=== PATIENT | female | born 1940 | race Caucasian/White ===

== ENCOUNTER 2017-02-02 10:50 | Observation (INO) | payer MEDICARE, MEDICAID ==
[2017-02-02 11:26] LABS: #Basophils 0.1 thou/uL (0.0-0.2); #Eosinphils 0.3 thou/uL (0.0-0.7); #Lymphocytes 3.2 thou/uL (1.20-3.40); #Monocytes 1.4 thou/uL (0.11-0.59); %Basophils 0.7 % (0.0-1.0); %Eosinophils 1.8 % (0.0-10.0); %Lymphocytes 22.8 % (21.0-51.0); %Monocytes 10.2 % (0.0-10.0); Hematocrit 48.5 % (36.0-47.0); Red Blood Cell (RBC) Count 5.35 mill/uL (4.20-5.40); White Blood Cell (WBC) Count 13.9 thou/uL (4.8-10.8)
[2017-02-02 11:37] LABS: PTT 53.2 SEC (22.9-36.1); Prothrombin Time 13.5 SEC (12.0-14.7)
--- NOTE | 2017-02-02 11:43 | RAD ---
SINGLE VIEW CHEST: HISTORY: Left lower rib pain since yesterday that is worse with breathing. COMPARISON: 07/15/2016 FINDINGS: A single view of the chest shows a normal sized cardiomediastinal silhouette with atherosclerotic caesar cifications in the aorta. The patient is status post sternotomy. There is no evidence of consolidat ion, mass, or pleural effusion. IMPRESSION: No evidence of acute cardiopulmonary disease. POS: [facility]
[2017-02-02 11:52] LABS: ALT (SGPT) 9 U/L (8-55); AST (SGOT) 15 U/L (5-34); Alkaline Phosphatase 88 U/L (40-150); Anion Gap 14 mmol/L (10-20); BUN (Urea Nitrogen) 17 mg/dL (9.8-20.1); Bilirubin, Total 0.9 mg/dL (0.2-1.2); CK (CPK) 64 U/L (29-168); Calc. Creatinine Clearance 0 mL/min (70-130); Calcium 9.9 mg/dL (7.8-10.44); Carbon Dioxide 24 mmol/L (23-31); Chloride 103 mmol/L (98-107); Estimated GFR-MDRD 50; Globulin 3.4 g/dL (2.4-3.5); Lipase 8 U/L (8-78); Magnesium 2.6 mg/dL (1.6-2.6); Protein, Total 7.6 g/dL (6.0-8.3)
[2017-02-02 12:01] LABS: Troponin I 0.013 ng/mL (< 0.028)
[2017-02-02 12:04] LABS: Bilirubin Negative (Negative); Blood, Urine Moderate (Negative); Glucose, Urine (Dipstick) Negative (Negative); Ketone, Urine Negative (Negative); Nitrite Negative (Negative); Protein, Urine (Dipstick) 30 mg/dL (Neg-Trace)
[2017-02-02 12:06] LABS: Bacteria/HPF 1+ HPF (None Seen); Hyaline Casts/LPF 0-3 HYALINE CAST LPF (0-3 Hyaline); RBC/HPF 21-50 HPF (0-3)
[2017-02-02] MEDS ORDERED: Ondansetron HCl/PF 4 MG/2 ML Vial ONE ×2 (13:10→16:57)
--- NOTE | 2017-02-02 13:42 | CT ---
CT ANGIOGRAM OF THE CHEST: Date: 02/02/17 HISTORY: Chest pain with deep breathing. TECHNIQUE: Serial axial CT imaging is obtained at 2.5 mm intervals from thoracic inlet through upper abdomen wit h IV contrast using a CT angiogram protocol. Coronal and oblique sagittal 3D reformatted imaging obta ined. FINDINGS: Partial assessment of the upper abdomen demonstrates stable linear calcification within the spleen quintana periorly. There are multiple intrarenal stones again identified within the left kidney, measuring up to 7-8 mm. There is no significant pleural, pericardial, or mediastinal fluid noted. Midline sternotomy wires and mediastinal clips are present. Lymphadenopathy seen within the chest. There is extensive calcified and noncalcified atherosclerotic plaque associated with thoracic aorta, incompletely characterized on this examination, better assessed on CT angiogram of the chest performe d 03/16/16. There is good opacification of the pulmonary arterial vasculature. No filling defect is seen within t he pulmonary arterial trunk or either main pulmonary artery. There is no evidence for pulmonary embolism on either side. There is no pneumothorax seen on either side. There is prominent central lobular emphysematous change with an upper lobe predominance. Osseous structures demonstrate no acute findings. Multilevel spinal degenerative change present. IMPRESSION: No evidence for pulmonary embolism. Numerous chronic findings as described above. POS: [facility]
[2017-02-02 15:55] LABS: Troponin I 0.015 ng/mL (< 0.028)
[2017-02-02] MEDS ORDERED: Acetaminophen 325 MG TAB PO PRN (17:13)
[2017-02-02] MEDS ORDERED: ISOVUE-370 76%-LOCM 1 ML ONE (17:21)
[2017-02-02 19:16] LABS: Troponin I Less than 0.010 ng/mL (< 0.028)
[2017-02-02] MEDS ORDERED: Promethazine HCl 25 MG SUPP PR PRN (20:08)
[2017-02-02] MEDS ORDERED: PROVENTIL INHALER 6.7 G (200 INHALATIONS) INH PRN (20:11)
[2017-02-02] MEDS ORDERED: Sodium Chloride 0.9% 10 ML ONE ×2 (21:13→23:52)
[2017-02-02] MEDS ORDERED: Ondansetron HCl/PF 4 MG/2 ML Vial SLOW IVP PRN (23:44)
[2017-02-02] MEDS ORDERED: Sodium Chloride 0.9% 1,000 ML IV SCH (23:45)
--- NOTE | 2017-02-03 00:04 | HP ---
HISTORY OF PRESENT ILLNESS: Suzette is a pleasant 76-year-old woman treated by Dr. Michael sanchez, who was hospitalized through the emergency room for chest pain. She has a known history of co ronary artery disease and is status post a 4-vessel CABG in the past. Her u.s. revenue officer is Dr. Justin Kelsey. She reports being in her usual health until about one day ago when the morning she noticed some sharp, well localized, left lower chest pain, limited to portion of what look like the costal ma rgin at approximately the left clavicular line. The pain has been there continuously and it seemed t o be worse with inhalation, exhalation and with laughing. She does not report any coughing. At that time, she notes the pain would radiate to the left neck area approximately 3 times total. She indic ates that the pain had radiated to her bilateral back, but cannot say that this was particularly a ra diation or this was just a coincidental low back pain that was present concurrently. She denies any palpitations, shortness of breath, and while she had no nausea or vomiting yesterday, she has had sarah e nausea today. She denies any recent fall or trauma to account for her left-sided chest pain. She notes no ankle edema. She has not had any diarrhea. PAST MEDICAL HISTORY: Includes; 1. Coronary artery disease, status post 4-vessel CABG as above. 2. Hyperlipidemia. 3. Tobacco use/60-year history of tobacco use. 4. History of paroxysmal atrial fibrillation. 5. History of degenerative joint disease, lumbosacral area. The patient indicates problems with her left hip as well as her hands. 6. Peripheral vascular disease is reported. 7. Abdominal aortic aneurysm. PAST SURGICAL HISTORY: 1. Four-vessel CABG. 2. Appendectomy. 3. Bladder surgery. 4. Hysterectomy. 5. Lower lumbar spine surgery/laminectomy. 6. Neurectomy (right occipital area). 7. Tonsillectomy. ALLERGIES: No known drug allergies. CURRENT MEDICATIONS: Taken include lisinopril 2.5 mg daily, rosuvastatin 10 mg twice weekly, 81 mg a spirin daily, metoprolol succinate ER 25 mg daily, Ventolin HFA 2 puffs p.r.n. shortness of breath, S ymbicort 160/4.5 twice daily. SOCIAL HISTORY: The patient lives with her , Ruslan in [place], [place] in a single story mikel e. She has one daughter, whose name is Lilliana. She has 3 step children. Her episcopal preference i s Religious. PHYSICAL EXAMINATION: VITAL SIGNS: Temperature 99.0, blood pressure 122/65, pulse 82, respiratory rate 16, O2 saturation 9 9. GENERAL: Thin female, appearing her reported age. Alert, pleasant, in no acute distress, [place] with the head of the bed raised to at least 45 degrees. Her breathing i s nonlabored. There are no retractions or use of accessory muscles. Her mood is euthymic. Her thou ght processes are coherent, logical, and goal directed without loose association or flight of ideas. Her intelligence and discussion with fund of knowledge and her overall presentation is at least aver age. HEENT: Oral cavity shows dentures material in the upper and lower (lower partial). NECK: Supple without lymphadenopathy or thyromegaly. LUNGS: Clear to auscultation without crackles or wheezes. CARDIAC: Well healed surgical sternotomy. There is a small area about the size of a dime in the rupali roximate area of the left costal margin in the midclavicular line, there is moderately tender to palp ation with voluntary guarding when she is examined. ABDOMEN: Soft, nontender. No lower extremity edema. SKIN: With normal texture and appearance. EXTREMITIES: Without clubbing, cyanosis, or edema. LABORATORY AND X-RAY FINDINGS: White blood cell count 13.9, hemoglobin 16. D-dimer is 1.17, GFR is 20. Liver enzymes normal. BUN 17, creatinine 1.08, potassium is 4.3. BNP is 214. Negative troponi n I x2. CT angiography of chest shows no pulmonary embolus. Electrocardiogram not seen in the [facility] nt chart in the emergency room (but is reported not to have any acute ST-T changes in it). ASSESSMENT: 1. Atypical chest pain suggestive of musculoskeletal pain. Her multiple risk factors now was standi ng could indicate that while less likely, she could still be having some cardiac ischemia. 2. Known coronary artery disease as per above. 3. Tobacco use with chronic obstructive pulmonary disease. 4. History of paroxysmal atrial fibrillation. PLAN: 1. Hospitalization. 2. Serial cardiac enzymes. 3. Cardiology consultation.
[2017-02-03] MEDS ORDERED: Mometasone/Formoterol 120 PUFF INHALER INH SCH (06:30)
[2017-02-03] MEDS ORDERED: Lisinopril 2.5 MG TAB PO SCH (09:00)
[2017-02-03] MEDS ORDERED: Aspirin 81 mg Enteric Coated Tablet PO SCH (09:00)
[2017-02-03] MEDS ORDERED: cefTRIAXone\\ROCEPHIN 2 GM in Sodium Chloride 0.9% 100 ML IVPB ONE (09:00)
--- NOTE | 2017-02-03 09:14 | DIS ---
DATE OF ADMISSION: 02/02/2017 DATE OF DISCHARGE: 02/03/2017 PRIMARY CARE PHYSICIAN: Michael Khalil M.D. ADMITTING PHYSICIAN: Dr. Mcmahon. CHIEF COMPLAINT: Chest pain. PRESENTING HISTORY OF PRESENT ILLNESS: The patient states she has had several days of worsening left anterior rib segment pain, pleuritic in nature, worse with palpation. She did, however, have brief episodes of radiation through to her neck. Given her heart history of prior coronary artery bypass g raft, she presented to the emergency department for evaluation for possible AL. HOSPITAL COURSE: The patient was found to have a UTI with elevated white blood cell count and dirty urine. Urine culture was sent. The patient started on Rocephin and will be continued on Keflex on a n outpatient basis for continued therapy. We will follow up on urine culture. Troponins x3 were neg ative. Chest pain subsided. Still remains pleuritic with respiratory therapy this a.m. Has much im proved regarding palpation. The patient felt she was getting dehydrated over the weekend with some b outs of emesis. She tolerated IV fluids very well with a course of pain resolution. Given a positiv e D-dimer, chest CTA was performed and it was negative for pulmonary emboli. No cardiopulmonary even ts that are acute. The patient does have lymphadenopathy within the chest. Sternotomy wires and cli ps are in place midline. Patient with calcified aorta. The patient's aorta has been monitored on CT A previously; last comparison of 03/16/2016. No consultations were performed. Follow up with myself , Dr. Michael Khalil, in clinic in the next week. DISCHARGE DIET: Heart healthy. DISCHARGE ACTIVITY: As tolerated. DISCHARGE CONDITION: Good. DISCHARGE MEDICATIONS: Phenergan 25 mg 1 tab p.o. q.6 hours p.r.n. for nausea and vomiting, Keflex 5 00 mg 1 capsule twice daily by mouth. Continue other home medications including baby aspirin 81 mg d aily, Symbicort 2 puffs 160 mg/4.5 twice daily inhaled, 2.5 mg lisinopril 1 tab p.o. daily, metoprolo l 25 mg 1 tab p.o. daily, Crestor 10 mg 1 tab p.o. daily, Ventolin 2 puffs 60 mg p.r.n. shortness tracey ath or cough. DISCHARGE DIAGNOSES: Include, 1. Atypical chest pain, rule out myocardial infarction. 2. Resolved urinary tract infection, under treatment. 3. Costochondritis. The patient will apply heating pad. Declines steroid burst at this point in ti me. 4. Dehydration, improved after IV fluids. Continuation of Phenergan for nausea and vomiting.
[2017-02-03 12:21] VITALS: BP 124/58; TEMP 98.3
--- NOTE | 2017-02-03 13:27 | EKG ---
Test Reason : Blood Pressure : / mmHG Vent. Rate : 103 BPM Atrial Rate : 103 BPM P-R Int : 124 ms QRS Dur : 072 ms QT Int : 350 ms P-R-T Axes : 088 052 088 degrees QTc Int : 458 ms Sinus tachycardia Biatrial enlargement ST elevation, consider early repolarization, pericarditis, or injury Abnormal ECG Confirmed by ROJAS MARTIN ([id number]), hardboard coating machine operator TAE DOBSON ([id number]) on 02/03/2017 1:27:05 PM Referred By: Confirmed By:ROJAS MARTIN
[2017-02-03 14:16] VITALS: BMI 19.3
== END 2017-02-03 14:20 | disposition home or self-care (01) ==
LOC: ERS 10:50 → ERHOLD 15:00 → 2NO 17:08
PROVIDERS: ADMIT Family Medicine; ATTEND Family Medicine
DX: R07.1 Chest pain on breathing (principal); N39.0 Urinary tract infection, site not specified; M94.0 Chondrocostal junction syndrome [Tietze]; E86.0 Dehydration; I25.10 Atherosclerotic heart disease of native coronary artery without angina pectoris; E78.5 Hyperlipidemia, unspecified; F17.200 Nicotine dependence, unspecified, uncomplicated; I48.0 Paroxysmal atrial fibrillation; I73.9 Peripheral vascular disease, unspecified; I71.4 Abdominal aortic aneurysm, without rupture; J44.9 Chronic obstructive pulmonary disease, unspecified; Z79.82 Long term (current) use of aspirin; Z79.899 Other long term (current) drug therapy; Z88.6 Allergy status to analgesic agent; Z88.5 Allergy status to narcotic agent; Z88.8 Allergy status to other drugs, medicaments and biological substances; Z95.1 Presence of aortocoronary bypass graft; Z90.49 Acquired absence of other specified parts of digestive tract; Z90.710 Acquired absence of both cervix and uterus; Z90.89 Acquired absence of other organs; Z98.890 Other specified postprocedural states
CPT/HCPCS: 71010; 71275; 80053; 82550; 82553; 83690; 83735; 83880; 84484 ×2; 85025; 85379; 85610; 85730; 87086; 93005; 94640; 96361 ×2; 96365; 96375; 96376 ×2; 99285; G0378; 36415; 81003; 81015; 96374; A4216; J0696; J2405; J7050

== ENCOUNTER 2017-02-16 15:36 | Emergency (ER) | payer MEDICARE, MEDICAID ==
[~2017-02-16 15:36] MED LIST: ISOVUE-370 76%-LOCM 1 ML ONE
[2017-02-16 16:10] LABS: #Basophils 0.1 thou/uL (0.0-0.2); #Eosinphils 0.1 thou/uL (0.0-0.7); #Lymphocytes 0.8 thou/uL (1.20-3.40); #Monocytes 0.8 thou/uL (0.11-0.59); #Neutrophils 6.8 thou/uL (1.40-6.50); %Basophils 0.6 % (0.0-1.0); %Eosinophils 1.2 % (0.0-10.0); %Neutrophils 80.2 % (42.0-75.0); Hemoglobin 15.3 g/dL (12.0-16.0); Mean Corpuscular HGB CONC 32.7 g/dL (32.0-36.0); Mean Corpuscular Hemoglobin 29.3 pg (27.0-31.0); Mean Corpuscular Volume 89.4 fl (81.0-99.0); Mean Platelet Volume 8.3 fL (7.4-10.4); Platelet Count 295 thou/uL (130-400); RBC Distribution Width 12.4 % (11.5-14.5); Red Blood Cell (RBC) Count 5.24 mill/uL (4.20-5.40); White Blood Cell (WBC) Count 8.5 thou/uL (4.8-10.8)
[2017-02-16 16:32] LABS: ALT (SGPT) 10 U/L (8-55); AST (SGOT) 15 U/L (5-34); Albumin 4.3 g/dL (3.4-4.8); Alkaline Phosphatase 91 U/L (40-150); Anion Gap 15 mmol/L (10-20); BUN (Urea Nitrogen) 17 mg/dL (9.8-20.1); Bilirubin, Total 0.5 mg/dL (0.2-1.2); CK (CPK) 51 U/L (29-168); CRP (Inflammatory) 0.71 mg/dL (= or < 0.5); Calc. Creatinine Clearance 0 mL/min (70-130); Calcium 9.8 mg/dL (7.8-10.44); Carbon Dioxide 20 mmol/L (23-31); Chloride 103 mmol/L (98-107); Estimated GFR-MDRD 43; Globulin 3.2 g/dL (2.4-3.5); Glucose 109 mg/dL (83-110); Potassium 4.1 mmol/L (3.5-5.1); Protein, Total 7.5 g/dL (6.0-8.3); Sodium 134 mmol/L (136-145)
[2017-02-16 16:36] LABS: CKMB 0.8 ng/mL (0-6.6); Troponin I 0.025 ng/mL (< 0.028)
--- NOTE | 2017-02-16 16:42 | RAD ---
CHEST ONE VIEW PORTABLE: History: 76-year-old female with chest pain. Comparison: 02-02-17 FINDINGS: Monitor leads overlie the chest. Post underlying sternotomy. Heart size is normal. The lungs are fabio r. IMPRESSION: Small stable chronic lung changes. No acute intrathoracic disease. Stable from prior study. POS: [facility]
[2017-02-16 16:49] LABS: Bilirubin Negative (Negative); Blood, Urine Small (Negative); Glucose, Urine (Dipstick) Negative (Negative); Leukocyte Negative (Negative); Nitrite Negative (Negative); Protein, Urine (Dipstick) Negative (Neg-Trace); Urobilinogen 0.2 mg/dL (0.2-1.0)
[2017-02-16 16:50] LABS: Clarity CLEAR (Clear)
[2017-02-16 16:57] LABS: Bacteria/HPF None Seen HPF (None Seen); Hyaline Casts/LPF NONE SEEN LPF (0-3 Hyaline); RBC/HPF 0-3 HPF (0-3); Squamous Epithelial 0-3 HPF (0-3); WBC/HPF None Seen HPF (0-3)
--- NOTE | 2017-02-16 17:50 | CT ---
CHEST CT ANGIOGRAM WITH 3D RENDERING: History: 76-year-old female with dyspnea and elevated D-Dimer. Comparison: 02-02-17 FINDINGS: There is some minimal stable scattered chronic lung changes bilaterally with some bullous changed in the upper lung zones and some linear fibrotic changes in the basis. There is some prominent atheroscl erotic change of the aorta with some fairly extensive plaque noted involving the thoracic aorta, part icularly the descending portion of the aorta, as well as the visualized upper abdomen with some focal moderate lumen diameter narrowing of the abdominal aorta just at the level of the renal arteries. Th ere is some calcified plaques at the origin of the celiac and superior mesenteric artery with at leas t some moderate stenosis of the origin of the superior mesenteric artery. Multiple nonobstructing lef t renal calculi. No significant CT evidence for acute pulmonary emboli. No pericardial effusion or pl eural effusion. There is three vessel coronary artery calcific disease. IMPRESSION: No CT evidence for acute pulmonary emboli. Stable chronic lung changes. Prominent irregular atheroscl erotic plaque of the thoracic and abdominal aorta with some at least moderate narrowing of the lumina l diameter of the abdominal aorta just at the level of the renal arteries. 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 Overall appearance is little changed from the prior study. POS: [facility]
--- NOTE | 2017-03-13 14:08 | EKG ---
Test Reason : SEPSIS ALERT Blood Pressure : / mmHG Vent. Rate : 089 BPM Atrial Rate : 089 BPM P-R Int : 132 ms QRS Dur : 074 ms QT Int : 376 ms P-R-T Axes : 091 003 074 degrees QTc Int : 457 ms Normal sinus rhythm Biatrial enlargement RSR' or QR pattern in V1 suggests right ventricular conduction delay Abnormal ECG Confirmed by YRIS LAWRENCE, LORRIE ([id number]), editorial manager TAE DOBSON ([id number]) on 03/13/2017 2:07:32 PM Referred By: Confirmed By:LORRIE ARNDT MD
== END 2017-02-16 18:44 | disposition home or self-care (01) ==
LOC: ERS 15:36
DX: J44.9 Chronic obstructive pulmonary disease, unspecified (principal); J06.9 Acute upper respiratory infection, unspecified; F17.210 Nicotine dependence, cigarettes, uncomplicated; I25.2 Old myocardial infarction; Z79.82 Long term (current) use of aspirin; Z79.899 Other long term (current) drug therapy
CPT/HCPCS: 71010; 71275; 80053; 81003; 81015; 82553; 84484; 85025; 85379; 86140; 87804; 93005; 94640

== ENCOUNTER 2020-12-13 03:44 | Inpatient (IN) | payer MEDICARE, MEDICAID ==
[2020-12-13] MEDS ORDERED: Ondansetron PF 4 MG/2 ML Vial ONE ×2 (04:09→06:43)
[2020-12-13] MEDS ORDERED: Morphine 4 MG/ML VIAL ONE ×2 (04:09→06:25)
[2020-12-13 04:53] LABS: ALT (SGPT) 10 U/L (8-55); AST (SGOT) 16 U/L (5-34); Albumin 3.9 g/dL (3.4-4.8); Alkaline Phosphatase 91 U/L (40-110); Anion Gap 16 mmol/L (10-20); BUN (Urea Nitrogen) 13 mg/dL (9.8-20.1); Bilirubin, Total 0.3 mg/dL (0.2-1.2); Calc. Creatinine Clearance 0 mL/min (70-130); Calcium 9.7 mg/dL (7.8-10.44); Carbon Dioxide 23 mmol/L (23-31); Chloride 104 mmol/L (98-107); Glucose 129 mg/dL (83-110); Lipase 26 U/L (8-78); Potassium 4.1 mmol/L (3.5-5.1); Protein, Total 6.9 g/dL (5.8-8.1); Sodium 139 mmol/L (136-145)
[2020-12-13 05:05] LABS: #Basophils 0.1 thou/uL (0.0-0.2); #Eosinphils 0.5 thou/uL (0.0-0.7); #Monocytes 0.8 thou/uL (0.11-0.59); #Neutrophils 6.2 thou/uL (1.40-6.50); %Basophils 0.9 % (0.0-1.0); %Eosinophils 4.4 % (0.0-10.0); %Lymphocytes 28.4 % (21.0-51.0); %Monocytes 7.4 % (0.0-10.0); %Neutrophils 58.9 % (42.0-75.0); Hemoglobin 14.2 g/dL (12.0-16.0); Mean Corpuscular Hemoglobin 29.1 pg (27.0-31.0); Mean Corpuscular Volume 88.2 fL (78.0-98.0); Mean Platelet Volume 9.4 fL (7.4-10.4); Platelet Count 301 thou/uL (130-400); RBC Distribution Width 12.3 % (11.5-14.5); Red Blood Cell (RBC) Count 4.88 mill/uL (4.20-5.40); White Blood Cell (WBC) Count 10.5 thou/uL (4.8-10.8)
[2020-12-13] MEDS ORDERED: Promethazine HCl 25 MG/ML VIAL ONE (07:02)
[2020-12-13 07:48] LABS: Bilirubin Negative (Negative); Blood, Urine Trace (Negative); Clarity Clear (Clear); Glucose, Urine (Dipstick) Normal (Negative); Ketone, Urine Negative (Negative); Leukocyte Negative Leu/uL (Negative); Nitrite Negative (Negative); Protein, Urine (Dipstick) Negative (Neg-Trace); Specific Gravity, Urine 1.035 (1.002-1.036); Squamous Epithelial 0-3 HPF (0-3); Urobilinogen Normal mg/dL (Less than 2); pH, Urine 6.5 (5.0-9.0)
[2020-12-13 07:49] LABS: Bacteria/HPF 1+ HPF (None Seen)
[2020-12-13] MEDS ORDERED: Pantoprazole 40 MG VIAL ONE (08:43)
[2020-12-13] MEDS ORDERED: cefTRIAXone\\ROCEPHIN 2 GM VIAL ONE (08:43)
[2020-12-13] MEDS ORDERED: Iopamidol 370 76% 100 ML VIAL ONE (09:59)
[2020-12-13] MEDS ORDERED: Acetaminophen 325 MG TAB PO PRN (10:14)
[2020-12-13 10:55] VITALS: BMI 17.2
[2020-12-13] MEDS: cefTRIAXone\\ROCEPHIN 1 GM in Sodium Chloride 0.9% 100 ML IVPB SCH (11:06)
[2020-12-13] MEDS ORDERED: Morphine 4 MG/ML VIAL SLOW IVP PRN (12:00)
[2020-12-13 12:23] LABS: Magnesium 1.9 mg/dL (1.6-2.6)
[2020-12-13 17:39] LABS: SARS-CoV-2 PCR by NAA Not Detected (NotDetected)
[2020-12-13] MEDS: Oxybutynin 5 MG TAB PO SCH (20:03)
[2020-12-13] MEDS: Polyethylene Glycol 3350 17 GM Packet PO SCH (20:03)
[2020-12-13] MEDS: HYDROcodone/Acetaminophen 5/325 mg Tablet PO PRN (20:03)
[2020-12-13] MEDS ORDERED: Magnesium Citrate 300 ML BOT PO SCH (20:30)
[2020-12-14] MEDS: HYDROcodone/Acetaminophen 5/325 mg Tablet PO PRN ×2 (04:42→14:38)
[2020-12-14 07:08] LABS: #Eosinphils 0.3 thou/uL (0.0-0.7); #Lymphocytes 1.8 thou/uL (1.20-3.40); #Monocytes 0.6 thou/uL (0.11-0.59); #Neutrophils 6.1 thou/uL (1.40-6.50); %Basophils 0.3 % (0.0-1.0); %Eosinophils 3.6 % (0.0-10.0); %Monocytes 6.4 % (0.0-10.0); %Neutrophils 69.6 % (42.0-75.0); Hemoglobin 14.3 g/dL (12.0-16.0); Mean Corpuscular HGB CONC 32.9 g/dL (32.0-36.0); Mean Corpuscular Hemoglobin 29.3 pg (27.0-31.0); Mean Corpuscular Volume 89.2 fL (78.0-98.0); Mean Platelet Volume 9.1 fL (7.4-10.4); Platelet Count 256 thou/uL (130-400); RBC Distribution Width 12.3 % (11.5-14.5); Red Blood Cell (RBC) Count 4.89 mill/uL (4.20-5.40); White Blood Cell (WBC) Count 8.8 thou/uL (4.8-10.8)
[2020-12-14 07:35] LABS: Anion Gap 13 mmol/L (10-20); BUN (Urea Nitrogen) 10 mg/dL (9.8-20.1); Calc. Creatinine Clearance 37 mL/min (70-130); Calcium 9.2 mg/dL (7.8-10.44); Carbon Dioxide 27 mmol/L (23-31); Chloride 103 mmol/L (98-107); Glucose 106 mg/dL (83-110); Potassium 3.9 mmol/L (3.5-5.1); Sodium 139 mmol/L (136-145)
[2020-12-14] MEDS: Aspirin Chewable 81 MG TAB PO SCH (09:38)
[2020-12-14] MEDS: Polyethylene Glycol 3350 17 GM Packet PO SCH ×2 (09:38→20:26)
[2020-12-14] MEDS: Oxybutynin 5 MG TAB PO SCH ×2 (09:38→20:26)
[2020-12-14] MEDS: FLUoxetine HCl 20 MG CAP PO SCH (09:38)
[2020-12-14] MEDS: Enoxaparin Sodium 30 MG/0.3 ML SYRINGE SC SCH (09:38)
[2020-12-14] MEDS: Losartan 25 MG TAB PO SCH (09:39)
[2020-12-14] MEDS ORDERED: FLU VACC QS2021-22(65YR UP)/PF 240 MCG/0.7 ML SYRINGE IM ONE (11:15)
[2020-12-14] MEDS ORDERED: Magnesium Citrate 300 ML BOT PO SCH (11:45)
[2020-12-14] MEDS: cefTRIAXone\\ROCEPHIN 1 GM in Sodium Chloride 0.9% 100 ML IVPB SCH (12:15)
[2020-12-14] MEDS: Senokot S 8.6-50 MG TAB PO SCH (21:06)
[2020-12-15 07:13] LABS: #Basophils 0.1 thou/uL (0.0-0.2); #Eosinphils 0.3 thou/uL (0.0-0.7); #Lymphocytes 2.4 thou/uL (1.20-3.40); #Monocytes 0.7 thou/uL (0.11-0.59); #Neutrophils 5.1 thou/uL (1.40-6.50); %Basophils 0.7 % (0.0-1.0); %Eosinophils 3.9 % (0.0-10.0); %Lymphocytes 27.7 % (21.0-51.0); %Monocytes 8.3 % (0.0-10.0); %Neutrophils 59.4 % (42.0-75.0); Hemoglobin 14.7 g/dL (12.0-16.0); Mean Corpuscular HGB CONC 33.5 g/dL (32.0-36.0); Mean Corpuscular Hemoglobin 29.6 pg (27.0-31.0); Mean Corpuscular Volume 88.3 fL (78.0-98.0); Mean Platelet Volume 9.9 fL (7.4-10.4); Platelet Count 228 thou/uL (130-400); RBC Distribution Width 12.1 % (11.5-14.5); Red Blood Cell (RBC) Count 4.96 mill/uL (4.20-5.40); White Blood Cell (WBC) Count 8.6 thou/uL (4.8-10.8)
[2020-12-15 07:54] LABS: Anion Gap 13 mmol/L (10-20); BUN (Urea Nitrogen) 10 mg/dL (9.8-20.1); Calc. Creatinine Clearance 37 mL/min (70-130); Calcium 9.5 mg/dL (7.8-10.44); Carbon Dioxide 26 mmol/L (23-31); Chloride 105 mmol/L (98-107); Glucose 99 mg/dL (83-110); Potassium 4.1 mmol/L (3.5-5.1); Sodium 140 mmol/L (136-145)
[2020-12-15] MEDS: Losartan 25 MG TAB PO SCH (08:16)
[2020-12-15] MEDS: Oxybutynin 5 MG TAB PO SCH ×2 (08:18→20:10)
[2020-12-15] MEDS: Aspirin Chewable 81 MG TAB PO SCH (08:18)
[2020-12-15] MEDS: FLUoxetine HCl 20 MG CAP PO SCH (08:18)
[2020-12-15] MEDS: Polyethylene Glycol 3350 17 GM Packet PO SCH ×3 (08:19→20:10)
[2020-12-15] MEDS: Senokot S 8.6-50 MG TAB PO SCH ×2 (08:19→20:10)
[2020-12-15] MEDS: Enoxaparin Sodium 30 MG/0.3 ML SYRINGE SC SCH (08:24)
[2020-12-15] MEDS: HYDROcodone/Acetaminophen 5/325 mg Tablet PO PRN ×2 (10:22→19:02)
[2020-12-15] MEDS: cefTRIAXone\\ROCEPHIN 1 GM in Sodium Chloride 0.9% 100 ML IVPB SCH (10:24)
[2020-12-15] MEDS ORDERED: Iopamidol-370 76% 500 ML 1 ML ONE (11:07)
[2020-12-15] MEDS ORDERED: Ketorolac Tromethamine 30 MG/ML VIAL IVP SCH (11:15)
[2020-12-15] MEDS ORDERED: Ondansetron PF 4 MG/2 ML Vial IVP PRN (11:45)
[2020-12-15] MEDS ORDERED: Scopolamine 1.5 mg/72 hour Patch TD SCH (12:00)
[2020-12-15] MEDS ORDERED: GoLYTELY 4,000 ml Bottle PO SCH (23:00)
[2020-12-16] MEDS ORDERED: Ketorolac Tromethamine 30 MG/ML VIAL IVP SCH (02:00)
[2020-12-16 07:46] LABS: #Eosinphils 0.3 thou/uL (0.0-0.7); #Lymphocytes 1.2 thou/uL (1.20-3.40); #Monocytes 0.7 thou/uL (0.11-0.59); #Neutrophils 7.1 thou/uL (1.40-6.50); %Basophils 0.5 % (0.0-1.0); %Eosinophils 2.8 % (0.0-10.0); %Monocytes 7.6 % (0.0-10.0); %Neutrophils 76.2 % (42.0-75.0); Mean Corpuscular HGB CONC 33.7 g/dL (32.0-36.0); Mean Corpuscular Hemoglobin 29.8 pg (27.0-31.0); Mean Corpuscular Volume 88.5 fL (78.0-98.0); Mean Platelet Volume 9.1 fL (7.4-10.4); Platelet Count 223 thou/uL (130-400); RBC Distribution Width 12.2 % (11.5-14.5); Red Blood Cell (RBC) Count 4.35 mill/uL (4.20-5.40); White Blood Cell (WBC) Count 9.3 thou/uL (4.8-10.8)
[2020-12-16 08:05] LABS: Anion Gap 12 mmol/L (10-20); BUN (Urea Nitrogen) 14 mg/dL (9.8-20.1); Calc. Creatinine Clearance 28 mL/min (70-130); Calcium 8.9 mg/dL (7.8-10.44); Carbon Dioxide 28 mmol/L (23-31); Chloride 102 mmol/L (98-107); Glucose 97 mg/dL (83-110); Potassium 4.1 mmol/L (3.5-5.1); Sodium 138 mmol/L (136-145)
[2020-12-16] MEDS: Enoxaparin Sodium 30 MG/0.3 ML SYRINGE SC SCH (08:31)
[2020-12-16] MEDS: Aspirin Chewable 81 MG TAB PO SCH ×2 (08:31→14:07)
[2020-12-16] MEDS: Polyethylene Glycol 3350 17 GM Packet PO SCH ×2 (10:16→14:20)
[2020-12-16] MEDS: Senokot S 8.6-50 MG TAB PO SCH (10:16)
[2020-12-16] MEDS: cefTRIAXone\\ROCEPHIN 1 GM in Sodium Chloride 0.9% 100 ML IVPB SCH (10:32)
[2020-12-16] MEDS ORDERED: Lidocaine 1% PF 5 ML VIAL ONE (12:40)
[2020-12-16] MEDS ORDERED: PROPOFOL 200 MG/20 ML VIAL ONE (12:40)
[2020-12-16] MEDS ORDERED: Ondansetron HCl/PF 4 MG/2 ML Vial IVP PRN (13:25)
[2020-12-16] MEDS ORDERED: Promethazine HCl 25 MG/ML VIAL IVPB PRN (13:25)
[2020-12-16] MEDS ORDERED: Promethazine HCl 25 MG/ML VIAL IM PRN (13:25)
[2020-12-16] MEDS: Losartan 25 MG TAB PO SCH (14:06)
[2020-12-16] MEDS: Oxybutynin 5 MG TAB PO SCH (14:07)
[2020-12-16] MEDS: FLUoxetine HCl 20 MG CAP PO SCH (14:07)
[2020-12-16 18:41] VITALS: BP 122/59; TEMP 98.1
== END 2020-12-16 20:02 | disposition home or self-care (01) | DRG 394 ==
LOC: ERS 03:44 → T4-A 08:57 → OBSVTOIN 12-15 22:56
PROVIDERS: ADMIT Internal Medicine; ATTEND Internal Medicine
PROC: 0DBL8ZZ Excision of Transverse Colon, Via Natural or Artificial Opening Endoscopic (ICD-10-PCS; principal; 2020-12-16)
DX: K63.5 Polyp of colon (principal); N39.0 Urinary tract infection, site not specified; Z20.822 Contact with and (suspected) exposure to COVID-19; I25.10 Atherosclerotic heart disease of native coronary artery without angina pectoris; I10 Essential (primary) hypertension; E78.5 Hyperlipidemia, unspecified; I71.4 Abdominal aortic aneurysm, without rupture; K64.4 Residual hemorrhoidal skin tags; J44.9 Chronic obstructive pulmonary disease, unspecified; K59.00 Constipation, unspecified; F17.210 Nicotine dependence, cigarettes, uncomplicated; N20.0 Calculus of kidney; K57.30 Diverticulosis of large intestine without perforation or abscess without bleeding; K64.8 Other hemorrhoids; Z90.49 Acquired absence of other specified parts of digestive tract; Z90.710 Acquired absence of both cervix and uterus; Z90.89 Acquired absence of other organs; Z95.1 Presence of aortocoronary bypass graft; Z88.5 Allergy status to narcotic agent; Z88.8 Allergy status to other drugs, medicaments and biological substances; I25.2 Old myocardial infarction; Z79.82 Long term (current) use of aspirin; Z79.899 Other long term (current) drug therapy
CPT/HCPCS: 36415; 74177; 80048; 80053; 81003; 81015; 83690; 83735; 84443; 85025; 87086; 88305; 90471; 90662; 93005; 96365; 96367; 96372; 96375; 96376; C9113; G0008; G0378; J0696; J1650; J1885; J2270; J2405; J2550; J2704; J3490; Q9967; U0003; U0005

== ENCOUNTER 2021-01-07 22:03 | Observation (INO) | payer MEDICARE, MEDICAID ==
[2021-01-07 22:25] VITALS: BMI 16.7
[2021-01-07] MEDS ORDERED: Ondansetron PF 4 MG/2 ML Vial IVP PRN (22:45)
[2021-01-07] MEDS ORDERED: Bisacodyl 5 MG TAB PO PRN (22:45)
[2021-01-07] MEDS ORDERED: Senokot S 8.6-50 MG TAB PO PRN (22:45)
[2021-01-07] MEDS ORDERED: Nitroglycerin 0.4 MG TAB (25 Tab Bottle) SL PRN (22:57)
[2021-01-07] MEDS ORDERED: Melatonin 3 MG TAB PO PRN (22:58)
[2021-01-07] MEDS ORDERED: Enoxaparin Sodium 40 MG/0.4 ML SYRINGE SC SCH (23:00)
[2021-01-07 23:11] LABS: Troponin I 0.057 ng/mL (< 0.028)
[2021-01-08 01:48] LABS: Troponin I 0.036 ng/mL (< 0.028)
[2021-01-08] MEDS ORDERED: hydrALAZINE 20 MG/ML VIAL SLOW IVP PRN (04:15)
[2021-01-08 05:43] LABS: #Monocytes 0.1 thou/uL (0.11-0.59); #Neutrophils 8.3 thou/uL (1.40-6.50); %Basophils 0.2 % (0.0-1.0); %Eosinophils 0.2 % (0.0-10.0); %Lymphocytes 10.5 % (21.0-51.0); %Monocytes 1.4 % (0.0-10.0); %Neutrophils 87.6 % (42.0-75.0); Hemoglobin 14.1 g/dL (12.0-16.0); Mean Corpuscular Hemoglobin 29.5 pg (27.0-31.0); Mean Corpuscular Volume 89.2 fL (78.0-98.0); Mean Platelet Volume 9.1 fL (7.4-10.4); Platelet Count 209 thou/uL (130-400); RBC Distribution Width 12.7 % (11.5-14.5); Red Blood Cell (RBC) Count 4.77 mill/uL (4.20-5.40); White Blood Cell (WBC) Count 9.5 thou/uL (4.8-10.8)
[2021-01-08] MEDS ORDERED: Mometasone 200 MCG/Formoterol 5 MCG 120 PUFF INHALER INH SCH (06:30)
[2021-01-08 06:38] LABS: ALT (SGPT) 9 U/L (8-55); AST (SGOT) 16 U/L (5-34); Albumin 3.3 g/dL (3.4-4.8); Alkaline Phosphatase 70 U/L (40-110); Anion Gap 13 mmol/L (10-20); BUN (Urea Nitrogen) 16 mg/dL (9.8-20.1); Bilirubin, Total 0.4 mg/dL (0.2-1.2); Calc. Creatinine Clearance 36 mL/min (70-130); Calcium 8.9 mg/dL (7.8-10.44); Carbon Dioxide 19 mmol/L (23-31); Chloride 110 mmol/L (98-107); Globulin 2.7 g/dL (2.4-3.5); Glucose 150 mg/dL (83-110); Potassium 4.4 mmol/L (3.5-5.1); Sodium 138 mmol/L (136-145)
[2021-01-08] MEDS ORDERED: FLUoxetine HCl 20 MG CAP PO SCH (09:00)
[2021-01-08] MEDS ORDERED: Enoxaparin Sodium 40 MG/0.4 ML SYRINGE SC SCH ×2 (09:00→21:00)
[2021-01-08 09:10] VITALS: BP 120/53; TEMP 98.7
[2021-01-08] MEDS ORDERED: Famotidine/PF 20 mg/2ml Vial SLOW IVP SCH (21:00)
== END 2021-01-08 10:43 | disposition home or self-care (01) ==
LOC: 2SW 22:03
PROVIDERS: ADMIT Internal Medicine; ATTEND Internal Medicine
DX: R10.9 Unspecified abdominal pain (principal); R77.8 Other specified abnormalities of plasma proteins; I25.10 Atherosclerotic heart disease of native coronary artery without angina pectoris; J44.9 Chronic obstructive pulmonary disease, unspecified; I10 Essential (primary) hypertension; I71.4 Abdominal aortic aneurysm, without rupture; N20.0 Calculus of kidney; F17.210 Nicotine dependence, cigarettes, uncomplicated; I25.2 Old myocardial infarction; I95.9 Hypotension, unspecified; Z86.010 Personal history of colon polyps; Z79.82 Long term (current) use of aspirin; Z79.899 Other long term (current) drug therapy; Z88.5 Allergy status to narcotic agent; Z88.6 Allergy status to analgesic agent; Z91.041 Radiographic dye allergy status; Z95.1 Presence of aortocoronary bypass graft
CPT/HCPCS: 80053; 84484 ×2; 85025; 94640; 96372; G0378 ×2; 36415; 36416; J1650

== ENCOUNTER 2022-07-31 19:00 | Outpatient (CLI) | payer MEDICARE, MEDICAID | END 2022-07-31 19:01 | disposition home or self-care (01) | LOC: SLEEPLAB 19:00 | PROVIDERS: ATTEND Family Medicine | DX: G47.33 Obstructive sleep apnea (adult) (pediatric) (principal); I25.10 Atherosclerotic heart disease of native coronary artery without angina pectoris; R06.83 Snoring; R53.83 Other fatigue | CPT/HCPCS: 95811 ==

== ENCOUNTER 2022-09-10 20:38 | Inpatient (IN) | payer OTHER, MEDICAID ==
[2022-09-10] MEDS ORDERED: Acetaminophen 500 MG TAB ONE (21:11)
[2022-09-10 21:25] LABS: #Basophils 0.1 thou/uL (0.0-0.2); #Monocytes 1.4 thou/uL (0.11-0.59); #Neutrophils 17.1 thou/uL (1.40-6.50); %Basophils 0.4 % (0.0-1.0); %Lymphocytes 5.2 % (21.0-51.0); %Monocytes 7.1 % (0.0-10.0); %Neutrophils 86.8 % (42.0-75.0); Hemoglobin 13.9 g/dL (12.0-16.0); Mean Corpuscular HGB CONC 33.2 g/dL (32.0-36.0); Mean Corpuscular Hemoglobin 28.5 pg (27.0-31.0); Mean Corpuscular Volume 85.9 fl (78.0-98.0); Mean Platelet Volume 12.1 fL (7.4-10.4); Platelet Count 171 10x3/uL (130-400); RBC Distribution Width 14.3 % (11.5-14.5); Red Blood Cell (RBC) Count 4.88 mill/uL (4.20-5.40); White Blood Cell (WBC) Count 19.8 10x3/uL (4.8-10.8)
[2022-09-10 21:47] LABS: ALT (SGPT) 10 U/L (8-55); AST (SGOT) 12 U/L (5-34); Albumin 3.9 g/dL (3.4-4.8); Alkaline Phosphatase 86 U/L (40-110); Anion Gap 15 mmol/L (10-20); BUN (Urea Nitrogen) 17 mg/dL (9.8-20.1); Bilirubin, Total 0.8 mg/dL (0.2-1.2); Calc. Creatinine Clearance 0 mL/min (70-130); Calcium 9.4 mg/dL (7.8-10.44); Carbon Dioxide 21 mmol/L (23-31); Chloride 101 mmol/L (98-107); Estimated GFR 61; Globulin 3.1 g/dL (2.4-3.5); Glucose 127 mg/dL (83-110); Lipase 8 U/L (8-78); Potassium 3.9 mmol/L (3.5-5.1); Sodium 133 mmol/L (136-145)
[2022-09-10 21:57] LABS: Bilirubin Negative (Negative); Blood, Urine 3+ (Negative); CAUTI Indications for Culture Dysuria,urgency,freq; Clarity Clear (Clear); Glucose, Urine (Dipstick) Normal (Negative); Ketone, Urine Negative (Negative); Leukocyte 500 Leu/uL (Negative); Nitrite Negative (Negative); Protein, Urine (Dipstick) 20 mg/dL (Neg-Trace); Specific Gravity, Urine 1.014 (1.002-1.036); Squamous Epithelial 0-3 HPF (0-3); Urobilinogen Normal mg/dL (Less than 2); WBC/HPF 21-50 HPF (0-3)
[2022-09-10 21:58] LABS: Bacteria/HPF 1+ HPF (None Seen)
[2022-09-10 21:59] LABS: Urine Culture Reflex Yes Yes
[2022-09-10 22:10] LABS: SARS-CoV-2 NAA Rapid Test Not Detected (NotDetected)
[2022-09-10] MEDS ORDERED: cefTRIAXone (ROCEPHIN) 2 GM VIAL ONE (22:12)
[2022-09-10] MEDS ORDERED: Ondansetron ODT 4 MG TAB PO PRN (22:54)
[2022-09-10] MEDS ORDERED: Senokot S 8.6-50 MG TAB PO PRN (22:54)
[2022-09-10] MEDS ORDERED: Guaifenesin DM 100-10/5 ML UDCUP PO PRN (22:54)
[2022-09-10] MEDS ORDERED: Ipratropium/Albuterol 3 ML NEB NEB PRN (22:54)
[2022-09-10] MEDS ORDERED: Ondansetron PF 4 MG/2 ML Vial IVP PRN (22:54)
[2022-09-10] MEDS ORDERED: guaiFENesin ER 600 MG TAB PO SCH (23:00)
[2022-09-10] MEDS ORDERED: Doxycycline 100 MG CAP PO SCH (23:00)
[2022-09-10] MEDS ORDERED: Ipratropium/Albuterol 3 ML NEB NEB SCH (23:45)
[2022-09-11] MEDS: Mometasone 200 MCG/Formoterol 5 MCG 120 PUFF INHALER INH SCH ×3 (00:09→18:29)
[2022-09-11 00:11] VITALS: BMI 18.6
[2022-09-11 00:33] LABS: Legionella Urinary Ag Negative (Negative); Strep pneumo Urine Ag NEGATIVE (NEGATIVE)
[2022-09-11] MEDS: Ipratropium/Albuterol 3 ML NEB NEB SCH ×6 (02:41→22:18)
[2022-09-11] MEDS: Acetaminophen 325 MG TAB PO PRN ×2 (05:04→13:56)
[2022-09-11 06:22] LABS: #Basophils 0.1 thou/uL (0.0-0.2); #Monocytes 1.3 thou/uL (0.11-0.59); #Neutrophils 13.3 thou/uL (1.40-6.50); %Basophils 0.3 % (0.0-1.0); %Eosinophils 0.1 % (0.0-10.0); %Lymphocytes 7.2 % (21.0-51.0); %Monocytes 7.9 % (0.0-10.0); Hemoglobin 12.9 g/dL (12.0-16.0); Mean Corpuscular HGB CONC 32.3 g/dL (32.0-36.0); Mean Corpuscular Hemoglobin 28.7 pg (27.0-31.0); Platelet Count 174 10x3/uL (130-400); RBC Distribution Width 14.5 % (11.5-14.5); White Blood Cell (WBC) Count 15.9 10x3/uL (4.8-10.8)
[2022-09-11 06:32] LABS: Mean Corpuscular Volume 88.7 fl (78.0-98.0)
[2022-09-11 06:51] LABS: Anion Gap 14 mmol/L (10-20); BUN (Urea Nitrogen) 14 mg/dL (9.8-20.1); Calc. Creatinine Clearance 36 mL/min (70-130); Calcium 8.9 mg/dL (7.8-10.44); Carbon Dioxide 20 mmol/L (23-31); Chloride 105 mmol/L (98-107); Estimated GFR 61; Glucose 128 mg/dL (83-110); Potassium 3.6 mmol/L (3.5-5.1); Sodium 135 mmol/L (136-145)
[2022-09-11] MEDS: Doxycycline 100 MG CAP PO SCH ×2 (08:17→21:18)
[2022-09-11] MEDS: guaiFENesin ER 600 MG TAB PO SCH ×2 (08:17→21:17)
[2022-09-11] MEDS: HYDROcodone/Acetaminophen 5/325 mg Tablet PO PRN ×2 (16:19→21:26)
[2022-09-11] MEDS: cefTRIAXone\\ROCEPHIN 1 GM in Sodium Chloride 0.9% 100 ML IVPB SCH (21:18)
[2022-09-12] MEDS: Ipratropium/Albuterol 3 ML NEB NEB SCH ×3 (02:21→10:10)
[2022-09-12 06:39] LABS: #Eosinphils 0.2 thou/uL (0.0-0.7); #Monocytes 1.4 thou/uL (0.11-0.59); #Neutrophils 9.3 thou/uL (1.40-6.50); %Basophils 0.3 % (0.0-1.0); %Eosinophils 1.6 % (0.0-10.0); %Lymphocytes 7.3 % (21.0-51.0); %Monocytes 11.5 % (0.0-10.0); %Neutrophils 78.8 % (42.0-75.0); Hemoglobin 12.6 g/dL (12.0-16.0); Mean Corpuscular HGB CONC 32.6 g/dL (32.0-36.0); Mean Corpuscular Hemoglobin 28.6 pg (27.0-31.0); Mean Corpuscular Volume 87.5 fl (78.0-98.0); Mean Platelet Volume 11.8 fL (7.4-10.4); Platelet Count 155 10x3/uL (130-400); RBC Distribution Width 14.5 % (11.5-14.5); Red Blood Cell (RBC) Count 4.41 mill/uL (4.20-5.40); White Blood Cell (WBC) Count 11.8 10x3/uL (4.8-10.8)
[2022-09-12 07:03] LABS: Anion Gap 12 mmol/L (10-20); BUN (Urea Nitrogen) 16 mg/dL (9.8-20.1); Calc. Creatinine Clearance 38 mL/min (70-130); Calcium 8.8 mg/dL (7.8-10.44); Carbon Dioxide 22 mmol/L (23-31); Chloride 104 mmol/L (98-107); Estimated GFR 66; Glucose 123 mg/dL (83-110); Potassium 3.7 mmol/L (3.5-5.1); Sodium 134 mmol/L (136-145)
[2022-09-12] MEDS: Mometasone 200 MCG/Formoterol 5 MCG 120 PUFF INHALER INH SCH ×2 (07:17→19:10)
[2022-09-12] MEDS: Doxycycline 100 MG CAP PO SCH ×2 (08:17→20:41)
[2022-09-12] MEDS: HYDROcodone/Acetaminophen 5/325 mg Tablet PO PRN ×3 (08:17→22:50)
[2022-09-12] MEDS: guaiFENesin ER 600 MG TAB PO SCH ×2 (08:18→20:41)
[2022-09-12] MEDS: Sodium Chloride 0.9% 1,000 ML IV SCH ×2 (08:25→22:56)
[2022-09-12] MEDS: Lidocaine 4% Patch TD SCH (09:29)
[2022-09-12] MEDS ORDERED: Ipratropium/Albuterol 3 ML NEB NEB PRN (10:30)
[2022-09-12] MEDS ORDERED: Ipratropium/Albuterol 3 ML NEB NEB SCH (12:30)
[2022-09-12] MEDS: cefTRIAXone\\ROCEPHIN 1 GM in Sodium Chloride 0.9% 100 ML IVPB SCH (20:41)
[2022-09-12] MEDS ORDERED: Transdermal Patch Removal TOP SCH (21:00)
[2022-09-13 06:49] LABS: #Basophils 0.1 thou/uL (0.0-0.2); #Eosinphils 0.4 thou/uL (0.0-0.7); #Monocytes 1.3 thou/uL (0.11-0.59); %Basophils 0.5 % (0.0-1.0); %Eosinophils 4.2 % (0.0-10.0); %Lymphocytes 9.7 % (21.0-51.0); %Monocytes 13.6 % (0.0-10.0); %Neutrophils 71.7 % (42.0-75.0); Hemoglobin 11.8 g/dL (12.0-16.0); Mean Corpuscular HGB CONC 32.2 g/dL (32.0-36.0); Mean Corpuscular Hemoglobin 28.4 pg (27.0-31.0); Mean Corpuscular Volume 88.4 fl (78.0-98.0); Mean Platelet Volume 11.4 fL (7.4-10.4); Platelet Count 178 10x3/uL (130-400); RBC Distribution Width 14.6 % (11.5-14.5); Red Blood Cell (RBC) Count 4.15 mill/uL (4.20-5.40); White Blood Cell (WBC) Count 9.8 10x3/uL (4.8-10.8)
[2022-09-13 07:16] LABS: Anion Gap 13 mmol/L (10-20); BUN (Urea Nitrogen) 14 mg/dL (9.8-20.1); Calc. Creatinine Clearance 45 mL/min (70-130); Calcium 8.7 mg/dL (7.8-10.44); Carbon Dioxide 19 mmol/L (23-31); Chloride 107 mmol/L (98-107); Estimated GFR 80; Glucose 103 mg/dL (83-110); Potassium 3.9 mmol/L (3.5-5.1); Sodium 135 mmol/L (136-145)
[2022-09-13] MEDS: Mometasone 200 MCG/Formoterol 5 MCG 120 PUFF INHALER INH SCH ×2 (07:43→17:12)
[2022-09-13 08:08] VITALS: TEMP 98
[2022-09-13] MEDS: HYDROcodone/Acetaminophen 5/325 mg Tablet PO PRN (08:54)
[2022-09-13] MEDS: Doxycycline 100 MG CAP PO SCH (08:54)
[2022-09-13] MEDS: Lidocaine 4% Patch TD SCH (08:54)
[2022-09-13] MEDS: guaiFENesin ER 600 MG TAB PO SCH (08:55)
[2022-09-13] MEDS: Sodium Chloride 0.9% 1,000 ML IV SCH (10:20)
[2022-09-13 16:20] VITALS: BP 142/76
== END 2022-09-13 17:37 | disposition home or self-care (01) | DRG 871 ==
LOC: ERS 20:38 → T4-B 22:48 → OBSVTOIN 09-11 16:08
PROVIDERS: ADMIT Student in an Organized Health Care Education/Training Program; ATTEND Internal Medicine
PROC: 3E03329 Introduction of Other Anti-infective into Peripheral Vein, Percutaneous Approach (ICD-10-PCS; principal; 2022-09-11)
PROC: 3E033HZ Introduction of Radioactive Substance into Peripheral Vein, Percutaneous Approach (ICD-10-PCS; 2022-09-12)
DX: A41.9 Sepsis, unspecified organism (principal); J18.9 Pneumonia, unspecified organism; N39.0 Urinary tract infection, site not specified; I25.10 Atherosclerotic heart disease of native coronary artery without angina pectoris; J44.9 Chronic obstructive pulmonary disease, unspecified; Z66 Do not resuscitate; I10 Essential (primary) hypertension; Z20.822 Contact with and (suspected) exposure to COVID-19; I25.2 Old myocardial infarction; Z95.1 Presence of aortocoronary bypass graft; Z88.5 Allergy status to narcotic agent; Z88.1 Allergy status to other antibiotic agents; Z88.8 Allergy status to other drugs, medicaments and biological substances; Z79.82 Long term (current) use of aspirin; Z79.899 Other long term (current) drug therapy; Z90.49 Acquired absence of other specified parts of digestive tract; Z90.89 Acquired absence of other organs; Z90.710 Acquired absence of both cervix and uterus; R65.20 Severe sepsis without septic shock; R07.89 Other chest pain
CPT/HCPCS: 36415; 36416; 71045; 71046; 78451; 80048; 80053; 81001; 83605; 83690; 84145; 85025; 85379; 87040; 87077; 87086; 87149; 87186; 87449; 87899; 93005; 94640; 94664; 96361; 96365; 96372; A9540; G0378; J0696; J1650; J3490; J7050; J7620

== ENCOUNTER 2023-01-21 08:28 | Outpatient (CLI) | payer OTHER, MEDICAID | END 2023-01-21 08:29 | disposition home or self-care (01) | LOC: ULT 08:28 | PROVIDERS: ATTEND Internal Medicine Cardiovascular Disease | DX: I71.43 Infrarenal abdominal aortic aneurysm, without rupture (principal) | CPT/HCPCS: 76706 ==

== ENCOUNTER 2023-11-23 09:46 | Outpatient (CLI) | payer OTHER, MEDICAID ==
[2023-11-23 10:43] LABS: #Basophils 0.07 10x3/uL (0.0-0.2); %Basophils 0.7 % (0.0-1.0); %Eosinophils 2.8 % (0.0-10.0); %Lymphocytes 24.3 % (21.0-51.0); %Monocytes 8.5 % (0.0-10.0); %Neutrophils 63.4 % (42.0-75.0); Hematocrit 42.9 % (36.0-47.0); Hemoglobin 13.4 g/dL (12.0-16.0); Mean Corpuscular HGB CONC 31.2 g/dL (32.0-36.0); Mean Corpuscular Hemoglobin 27.9 pg (27.0-31.0); Mean Corpuscular Volume 89.2 fL (78.0-98.0); Mean Platelet Volume 10.9 fL (7.4-10.4); Platelet Count 249 10x3/uL (130-400); RBC Distribution Width 15.3 % (11.5-14.5); Red Blood Cell (RBC) Count 4.81 mill/uL (4.20-5.40)
[2023-11-23 10:56] LABS: Bacteria/HPF 2+ HPF (None Seen); Bilirubin Negative (Negative); Blood, Urine 2+ (Negative); Clarity Turbid (Clear); Glucose, Urine (Dipstick) Normal (Negative); Ketone, Urine Negative (Negative); Leukocyte 500 Leu/uL (Negative); Nitrite 2+ (Negative); Protein, Urine (Dipstick) 30 mg/dL (Neg-Trace); RBC/HPF Greater than 50 HPF (0-3); Specific Gravity, Urine 1.015 (1.002-1.036); Squamous Epithelial 0-3 HPF (0-3); Urobilinogen Normal mg/dL (Less than 2); WBC/HPF Greater than 50 HPF (0-3); pH, Urine 6.5 (5.0-9.0)
[2023-11-23 10:57] LABS: Prothrombin Time 12.6 sec (12.0-14.7)
[2023-11-23 10:58] LABS: PTT 49.9 sec (22.9-36.1)
[2023-11-23 11:00] LABS: Anion Gap 12 mmol/L (10-20); BUN (Urea Nitrogen) 21 mg/dL (9.8-20.1); Calc. Creatinine Clearance 0 mL/min (70-130); Calcium 9.6 mg/dL (7.8-10.44); Carbon Dioxide 25 mmol/L (23-31); Chloride 107 mmol/L (98-107); Estimated GFR 60; Glucose 93 mg/dL (83-110); Sodium 140 mmol/L (136-145)
== END 2023-11-23 09:47 | disposition home or self-care (01) ==
LOC: LABBT 09:46
PROVIDERS: ATTEND Urology
DX: Z01.818 Encounter for other preprocedural examination (principal); I25.10 Atherosclerotic heart disease of native coronary artery without angina pectoris; N32.89 Other specified disorders of bladder; I48.0 Paroxysmal atrial fibrillation; N20.0 Calculus of kidney; Z72.0 Tobacco use
CPT/HCPCS: 80048; 81001; 85025; 85610; 85730; 86850; 86900; 86901; 87077; 87086; 87186; 93005; 93010

== ENCOUNTER 2023-12-02 07:04 | Day surgery (SDC) | payer OTHER, MEDICAID ==
[2023-11-23 10:21] VITALS: BMI 16.5
[2023-12-02] MEDS ORDERED: Iopamidol 30 ML ONE (07:24)
[2023-12-02] MEDS ORDERED: Esmolol 100 MG/10 ML VIAL ONE (07:45)
[2023-12-02] MEDS ORDERED: Dexamethasone 20 MG/5 ML VIAL ONE (07:45)
[2023-12-02] MEDS ORDERED: PROPOFOL 200 MG/20 ML VIAL ONE (07:45)
[2023-12-02] MEDS ORDERED: Ondansetron PF 4 MG/2 ML Vial ONE (07:45)
[2023-12-02] MEDS ORDERED: Rocuronium Bromide 10 MG/ML (10ML VIAL) ONE (07:45)
[2023-12-02] MEDS ORDERED: Lidocaine 1% PF 5 ML VIAL ONE (07:45)
[2023-12-02] MEDS ORDERED: PHENYLEPHRINE-NS 100 MCG/ML 10 ML SYRINGE ONE (07:58)
[2023-12-02] MEDS ORDERED: Furosemide 20 MG (2 mL) VIAL ONE (08:50)
[2023-12-02] MEDS ORDERED: Morphine 4 MG/ML VIAL ONE (09:10)
[2023-12-02] MEDS ORDERED: Morphine 2 MG/ML VIAL ONE ×3 (09:14→09:45)
[2023-12-02] MEDS ORDERED: Hyoscyamine SL 0.125 MG TAB ONE (09:17)
[2023-12-02] MEDS ORDERED: HYDROmorphone 0.5 MG/0.5 ML SYRINGE ONE ×2 (09:19→09:49)
[2023-12-02] MEDS ORDERED: Phenazopyridine HCl 100 MG TAB ONE (09:33)
[2023-12-02] MEDS ORDERED: Promethazine HCl 25 MG/ML VIAL ONE (09:36)
== END 2023-12-02 12:35 | disposition home or self-care (01) ==
LOC: SDC 07:04
PROVIDERS: ATTEND Urology
PROC: 0TBB8ZZ Excision of Bladder, Via Natural or Artificial Opening Endoscopic (ICD-10-PCS; principal; 2023-12-02)
DX: C67.2 Malignant neoplasm of lateral wall of bladder (principal); N32.89 Other specified disorders of bladder; N39.0 Urinary tract infection, site not specified; N20.0 Calculus of kidney; I25.10 Atherosclerotic heart disease of native coronary artery without angina pectoris
CPT/HCPCS: 52204; 52240; 86850; 86900; 86901; J1100; J1170; J1940; J2272 ×2; J2405; J2550; J2704; Q9967; 88307

== ENCOUNTER 2023-12-10 13:36 | Inpatient (IN) | payer OTHER, MEDICAID ==
[~2023-12-10 13:36] MED LIST changes: -ISOVUE-370 76%-LOCM 1 ML ONE; +Iopamidol 370 76% 100 ML VIAL ONE
[2023-12-10] MEDS ORDERED: Sodium Bicarb 50 MEQ/50 ML Abboject 8.4% SYRINGE ONE (14:06)
[2023-12-10] MEDS ORDERED: EPINEPHrine 1 MG/10 ML Abboject SYRINGE ONE (14:06)
[2023-12-10] MEDS ORDERED: Magnesium 5 GM/10 ML Abboject SYRINGE ONE (14:06)
[2023-12-10 14:47] LABS: Actual Bicarbonate (HCO3a) 21.4 mEq/L (22-28); Analyzer IN Cardio OR; Base Excess (BEa) -4.4 mEq/L (-2.0 to +3.0); CO2 Tension 41.9 mmHg (35.0-45.0); Calcium, Ionized (arterial) 1.02 mmol/L (1.12-1.30); Carboxyhemoglobin (COHb) 2.4 gm% (0.0-3.0); Hematocrit-ABG 35 % (36.0-47.0); Potassium - ABG Lab 3.92 mmol/L (3.70-5.30); Puncture Site Right Radial artery; pH, Arterial 7.326 (7.35-7.45)
[2023-12-10] MEDS ORDERED: Electrolyte Replacement Protocol 1 EACH FS ONE (15:20)
[2023-12-10] MEDS ORDERED: Ventilator Sedation Protocol 1 EACH FS ONE (15:20)
[2023-12-10] MEDS ORDERED: DISCONTINUE PREVIOUS NARCOTIC PAIN MEDICATIONS AND BENZODIAZEPINES FS SCH (15:30)
[2023-12-10] MEDS ORDERED: Fentanyl BOLUS 250 ML IVPB PRN (15:30)
[2023-12-10] MEDS ORDERED: Propofol BOLUS 1,000 MG/100 ML VIAL IV PRN (15:30)
[2023-12-10] MEDS ORDERED: Fentanyl CADD 100 ML IV SCH (15:30)
[2023-12-10 15:33] LABS: Hematocrit 37.5 % (36.0-47.0); Hemoglobin 11.9 g/dL (12.0-16.0); Mean Corpuscular HGB CONC 31.7 g/dL (32.0-36.0); Mean Corpuscular Hemoglobin 28.1 pg (27.0-31.0); Mean Corpuscular Volume 88.7 fL (78.0-98.0); Mean Platelet Volume 11.4 fL (7.4-10.4); Platelet Count 209 10x3/uL (130-400); Red Blood Cell (RBC) Count 4.23 mill/uL (4.20-5.40)
[2023-12-10 15:34] VITALS: BMI 17.7
[2023-12-10] MEDS ORDERED: Electrolyte Replacement Protocol FS PRN (15:45)
[2023-12-10 15:53] LABS: ALT (SGPT) 11 U/L (8-55); AST (SGOT) 16 U/L (5-34); Albumin 2.3 g/dL (3.4-4.8); Alkaline Phosphatase 69 U/L (40-110); Anion Gap 18 mmol/L (10-20); BUN (Urea Nitrogen) 27 mg/dL (9.8-20.1); Bilirubin, Total 0.1 mg/dL (0.2-1.2); Calc. Creatinine Clearance 22 mL/min (70-130); Calcium 7.8 mg/dL (7.8-10.44); Carbon Dioxide 19 mmol/L (23-31); Chloride 106 mmol/L (98-107); Estimated GFR 37; Globulin 2.1 g/dL (2.4-3.5); Glucose 184 mg/dL (83-110); Potassium 4.1 mmol/L (3.5-5.1); Protein, Total 4.4 g/dL (5.8-8.1); Sodium 139 mmol/L (136-145)
[2023-12-10] MEDS: Magnesium 2 GM/50 ML(in water) 2 GM in Premix 1 BAG IVPB SCH (15:55)
[2023-12-10] MEDS: Lorazepam 2 MG/ML VIAL SLOW IVP PRN (15:55)
[2023-12-10] MEDS: methylPREDNISolone Sod Succ/PF 125 MG/2 ML VIAL IVP SCH (15:55)
[2023-12-10] MEDS: Sodium Chloride 0.9% 1,000 ML IV SCH (15:55)
[2023-12-10] MEDS: Dexmedetomidine In 0.9 % NaCl 100 ML IVPB SCH (15:55)
[2023-12-10 15:58] LABS: Troponin I 0.012 ng/mL (< 0.028)
[2023-12-10 15:59] LABS: Band 2 % (5-11); Burr Cells MODERATE= 6-15 cells HPF (0-1); Eosinophils 1 % (0-10); Lymphocytes 42 % (21-51); Macrocytosis SLIGHT = 6-15 cells HPF (0-5); Monocytes 2 % (0-10); Myelocyte 1 % (0-0); Neutrophil 49 % (42-75); Nucleated RBC (Manual Ct) 2 % (0); Platelet Adequacy Comment Platelets Normal; Poikilocytosis SLIGHT = 6-15 cells HPF (0-5); Reactive Lymphocytes 4 % (0-10); Smudge Cells 7.9 %
[2023-12-10] MEDS: NOREPINEPHRINE 8 MG/250 ML-D5W 250 ML IVPB SCH (16:14)
[2023-12-10] MEDS: Propofol 1,000 MG/100 ML VIAL IV PRN (16:14)
[2023-12-10] MEDS ORDERED: diphenhydrAMINE 50 MG/ML VIAL IVP PRN (16:20)
[2023-12-10] MEDS ORDERED: Acetaminophen 650 MG Suppository PR PRN (16:20)
[2023-12-10] MEDS: Famotidine/PF 20 mg/2ml Vial SLOW IVP SCH (16:25)
[2023-12-10] MEDS: Ipratropium/Albuterol 3 ML NEB ONE (18:15)
[2023-12-10] MEDS: Ipratropium/Albuterol 3 ML NEB NEB SCH (18:17)
[2023-12-11] MEDS: methylPREDNISolone Sod Succ 40 MG VIAL IVP SCH (01:19)
[2023-12-11 04:03] LABS: ALT (SGPT) 16 U/L (8-55); AST (SGOT) 29 U/L (5-34); Albumin 2.7 g/dL (3.4-4.8); Alkaline Phosphatase 72 U/L (40-110); Anion Gap 15 mmol/L (10-20); BUN (Urea Nitrogen) 32 mg/dL (9.8-20.1); Bilirubin, Total 0.2 mg/dL (0.2-1.2); Calc. Creatinine Clearance 20 mL/min (70-130); Calcium 7.5 mg/dL (7.8-10.44); Carbon Dioxide 19 mmol/L (23-31); Chloride 109 mmol/L (98-107); Estimated GFR 32; Globulin 2.5 g/dL (2.4-3.5); Glucose 323 mg/dL (83-110); Protein, Total 5.2 g/dL (5.8-8.1); Sodium 139 mmol/L (136-145)
[2023-12-11 04:10] LABS: Hematocrit 38.6 % (36.0-47.0); Hemoglobin 12.4 g/dL (12.0-16.0); Mean Corpuscular HGB CONC 32.1 g/dL (32.0-36.0); Mean Corpuscular Hemoglobin 27.9 pg (27.0-31.0); Mean Corpuscular Volume 86.9 fL (78.0-98.0); Mean Platelet Volume 10.9 fL (7.4-10.4); Platelet Count 269 10x3/uL (130-400); Red Blood Cell (RBC) Count 4.44 mill/uL (4.20-5.40)
[2023-12-11 04:37] LABS: Anisocytosis SLIGHT = 6-15 cells HPF (0-5); Band 7 % (5-11); Burr Cells SLIGHT = 2-5 cells HPF (0-1); Lymphocytes 1 % (21-51); Monocytes 3 % (0-10); Neutrophil 89 % (42-75); Platelet Adequacy Comment Platelets Normal; Polychromasia SLIGHT = 2-3 cells HPF (0-2)
[2023-12-11 07:19] LABS: Actual Bicarbonate (HCO3a) 19.2 mEq/L (22-28); Base Excess (BEa) -3.8 mEq/L (-2.0 to +3.0); CO2 Tension 29.3 mmHg (35.0-45.0); Calcium, Ionized (arterial) 1.05 mmol/L (1.12-1.30); Carboxyhemoglobin (COHb) 0.7 gm% (0.0-3.0); Hematocrit-ABG 38 % (36.0-47.0); Hemoglobin (Hb) 12.9 g/dL (12.0-16.0); O2 Tension (PaO2), arterial 205.6 mmHg (> 60.0); Potassium - ABG Lab 4.13 mmol/L (3.70-5.30); pH, Arterial 7.435 (7.35-7.45)
[2023-12-11 07:25] LABS: ALV-art Gradient 185.575 mmHg (0-20); Puncture Site Left Radial artery
[2023-12-11] MEDS: Pantoprazole 40 MG VIAL IVP SCH (08:10)
[2023-12-11] MEDS: Enoxaparin 30 MG (0.3 mL) SYRINGE SC SCH (08:10)
[2023-12-11] MEDS ORDERED: Insulin Lispro 100 UNIT/ML 10 ML VIAL SC PRN (08:45)
[2023-12-11] MEDS: Lactated Ringer's 500 ML IV SCH (09:09)
[2023-12-11] MEDS: Morphine 2 MG/ML VIAL SLOW IVP PRN ×2 (09:47→14:20)
[2023-12-11] MEDS: Lidocaine 4% Patch TD SCH (10:30)
[2023-12-11] MEDS: Lidocaine 4% Patch TD STA (10:35)
[2023-12-11] MEDS: HYDROcodone/Acetaminophen 5/325 mg Tablet PO PRN ×2 (12:44→18:31)
[2023-12-11] MEDS: Nicotine 14 MG PATCH TD SCH (13:31)
[2023-12-11 13:58] LABS: Bilirubin Negative (Negative); Blood, Urine 3+ (Negative); Clarity Clear (Clear); Glucose, Urine (Dipstick) 50 mg/dL (Negative); Ketone, Urine Negative (Negative); Leukocyte 25 Leu/uL (Negative); Nitrite Negative (Negative); Protein, Urine (Dipstick) 20 mg/dL (Neg-Trace); RBC/HPF Greater than 50 HPF (0-3); Specific Gravity, Urine 1.032 (1.002-1.036); Squamous Epithelial None Seen HPF (0-3); Urobilinogen Normal mg/dL (Less than 2); Yeast-Budding Rare HPF (None Seen)
[2023-12-11 14:05] LABS: Bacteria/HPF 1+ HPF (None Seen)
[2023-12-11] MEDS ORDERED: Dextrose 50% Abboject 50 ML SYRINGE SLOW IVP PRN (15:25)
[2023-12-11] MEDS ORDERED: Glucagon 1 MG/ML KIT IM PRN (15:25)
[2023-12-11] MEDS ORDERED: Dextrose 5% in Water 1,000 ML IV PRN (15:25)
[2023-12-11] MEDS: Famotidine/PF 20 mg/2ml Vial SLOW IVP SCH (20:37)
[2023-12-11] MEDS: Aspirin Chewable 81 MG TAB PO SCH (21:53)
[2023-12-11] MEDS: Transdermal Patch Removal TOP SCH (23:15)
[2023-12-12 04:56] LABS: Hemoglobin A1c 5.6 % (4.0-6.0)
[2023-12-12 04:58] LABS: Hemoglobin 10.9 g/dL (12.0-16.0); Mean Corpuscular HGB CONC 32.1 g/dL (32.0-36.0); Mean Corpuscular Hemoglobin 28.4 pg (27.0-31.0); Mean Corpuscular Volume 88.5 fL (78.0-98.0); Mean Platelet Volume 11.5 fL (7.4-10.4); Platelet Count 157 10x3/uL (130-400); RBC Distribution Width 15.7 % (11.5-14.5); Red Blood Cell (RBC) Count 3.84 mill/uL (4.20-5.40)
[2023-12-12 05:24] LABS: Band 5 % (5-11); Burr Cells SLIGHT = 2-5 cells HPF (0-1); Lymphocytes 1 % (21-51); Monocytes 1 % (0-10); Neutrophil 93 % (42-75); Platelet Adequacy Comment Platelets Normal
[2023-12-12 05:57] LABS: ALT (SGPT) 20 U/L (8-55); AST (SGOT) 45 U/L (5-34); Albumin 2.8 g/dL (3.4-4.8); Alkaline Phosphatase 73 U/L (40-110); Anion Gap 11 mmol/L (10-20); BUN (Urea Nitrogen) 21 mg/dL (9.8-20.1); Bilirubin, Total 0.3 mg/dL (0.2-1.2); Calc. Creatinine Clearance 39 mL/min (70-130); Calcium 8.1 mg/dL (7.8-10.44); Carbon Dioxide 20 mmol/L (23-31); Cardiac Risk 2.4 (Less than 4.5); Chloride 108 mmol/L (98-107); Cholesterol 110 mg/dl (< 200 Desired); Estimated GFR 73; Globulin 2.9 g/dL (2.4-3.5); Glucose 140 mg/dL (83-110); HDL Cholesterol 46 mg/dL (>60 Neg Risk); LDL Cholesterol, Calculated 45 mg/dL; Magnesium 2.2 mg/dL (1.6-2.6); Potassium 4.1 mmol/L (3.5-5.1); Protein, Total 5.7 g/dL (5.8-8.1); Sodium 135 mmol/L (136-145); Triglycerides 96 mg/dL (Less than 150)
[2023-12-12] MEDS: Loratadine 10 MG TAB PO SCH (08:46)
[2023-12-12] MEDS: methylPREDNISolone Sod Succ 40 MG VIAL IVP SCH (08:48)
[2023-12-12] MEDS ORDERED: Aspirin 81 mg Enteric Coated Tablet PO SCH (09:00)
[2023-12-12] MEDS: FLU (Fluad Triv) TS24-25 (65UP)/MF59C/PF 45 MCG/0.5 ML Syringe IM ONE (09:16)
[2023-12-12] MEDS: Aspirin 81 mg Enteric Coated Tablet PO SCH (09:35)
[2023-12-12] MEDS: Enoxaparin 30 MG (0.3 mL) SYRINGE SC SCH (09:35)
[2023-12-12] MEDS: Ondansetron PF 4 MG/2 ML Vial IVP PRN (11:16)
[2023-12-12] MEDS ORDERED: Magnevist 469MG/ML 20 ML VIAL ONE ×2 (12:52)
[2023-12-12] MEDS: Ipratropium/Albuterol 3 ML NEB NEB SCH (13:07)
[2023-12-12] MEDS: HYDROmorphone 0.5 MG/0.5 ML SYRINGE SLOW IVP SCH (14:47)
[2023-12-13] MEDS ORDERED: Ipratropium/Albuterol 3 ML NEB NEB PRN (00:40)
[2023-12-13] MEDS ORDERED: Ipratropium/Albuterol 3 ML NEB NEB SCH (01:00)
[2023-12-13] MEDS: HYDROmorphone 0.5 MG/0.5 ML SYRINGE SLOW IVP SCH (02:33)
[2023-12-13 04:36] LABS: #Basophils 0.03 10x3/uL (0.0-0.2); #Eosinophils Less than 0.03 10x3/uL (0.0-0.7); %Basophils 0.1 % (0.0-1.0); %Monocytes 4.7 % (0.0-10.0); Hematocrit 33.6 % (36.0-47.0); Hemoglobin 10.7 g/dL (12.0-16.0); Mean Corpuscular HGB CONC 31.8 g/dL (32.0-36.0); Mean Corpuscular Hemoglobin 27.7 pg (27.0-31.0); Mean Platelet Volume 11.9 fL (7.4-10.4); Platelet Count 133 10x3/uL (130-400); RBC Distribution Width 15.8 % (11.5-14.5); Red Blood Cell (RBC) Count 3.86 mill/uL (4.20-5.40)
[2023-12-13 04:49] LABS: ALT (SGPT) 23 U/L (8-55); AST (SGOT) 39 U/L (5-34); Albumin 2.8 g/dL (3.4-4.8); Alkaline Phosphatase 65 U/L (40-110); Anion Gap 10 mmol/L (10-20); BUN (Urea Nitrogen) 18 mg/dL (9.8-20.1); Bilirubin, Total 0.3 mg/dL (0.2-1.2); Calc. Creatinine Clearance 40 mL/min (70-130); Calcium 8.3 mg/dL (7.8-10.44); Carbon Dioxide 23 mmol/L (23-31); Chloride 107 mmol/L (98-107); Estimated GFR 74; Globulin 2.9 g/dL (2.4-3.5); Glucose 122 mg/dL (83-110); Lipase 10 U/L (8-78); Potassium 4.1 mmol/L (3.5-5.1); Protein, Total 5.7 g/dL (5.8-8.1); Sodium 136 mmol/L (136-145)
[2023-12-13] MEDS: Labetalol HCl 100 MG/20 ML VIAL SLOW IVP PRN (08:19)
[2023-12-13] MEDS: HYDROcodone/Acetaminophen 10/325 mg Tablet PO PRN (08:28)
[2023-12-13 08:42] LABS: Free T4 (Free Thyroxine) 0.93 ng/dL (0.70-1.48)
[2023-12-13] MEDS ORDERED: Aspirin 81 mg Enteric Coated Tablet PO SCH (09:00)
[2023-12-13] MEDS ORDERED: Enoxaparin 30 MG (0.3 mL) SYRINGE SC SCH (09:00)
[2023-12-13] MEDS: hydrALAZINE 20 MG/ML VIAL SLOW IVP PRN (09:10)
[2023-12-13] MEDS: HYDROmorphone 2 MG TAB PO PRN (11:05)
[2023-12-13] MEDS: Losartan 25 MG TAB PO SCH ×2 (15:53→17:45)
[2023-12-14 04:15] LABS: #Basophils 0.03 10x3/uL (0.0-0.2); #Eosinophils Less than 0.03 10x3/uL (0.0-0.7); %Basophils 0.1 % (0.0-1.0); %Lymphocytes 5.8 % (21.0-51.0); %Neutrophils 88.6 % (42.0-75.0); Hematocrit 38.4 % (36.0-47.0); Hemoglobin 12.2 g/dL (12.0-16.0); Mean Corpuscular HGB CONC 31.8 g/dL (32.0-36.0); Mean Corpuscular Hemoglobin 27.5 pg (27.0-31.0); Mean Corpuscular Volume 86.7 fL (78.0-98.0); Mean Platelet Volume 12.1 fL (7.4-10.4); Platelet Count 178 10x3/uL (130-400); RBC Distribution Width 15.2 % (11.5-14.5); Red Blood Cell (RBC) Count 4.43 mill/uL (4.20-5.40)
[2023-12-14 04:36] LABS: Anion Gap 12 mmol/L (10-20); BUN (Urea Nitrogen) 19 mg/dL (9.8-20.1); Calc. Creatinine Clearance 44 mL/min (70-130); Calcium 8.9 mg/dL (7.8-10.44); Carbon Dioxide 27 mmol/L (23-31); Chloride 100 mmol/L (98-107); Estimated GFR 87; Glucose 107 mg/dL (83-110); Magnesium 2.1 mg/dL (1.6-2.6); Potassium 3.9 mmol/L (3.5-5.1); Sodium 135 mmol/L (136-145)
[2023-12-14] MEDS: Losartan 25 MG TAB PO SCH (08:52)
[2023-12-14] MEDS: NIFEdipine XL 30 MG ER.TAB PO SCH (10:40)
[2023-12-14] MEDS: Polyethylene Glycol 3350 17 GM Packet PO SCH (19:18)
[2023-12-14] MEDS: Senokot S 8.6-50 MG TAB PO SCH (21:12)
[2023-12-15 04:20] LABS: #Basophils Less than 0.03 10x3/uL (0.0-0.2); #Eosinophils Less than 0.03 10x3/uL (0.0-0.7); %Basophils 0.1 % (0.0-1.0); %Eosinophils 0.1 % (0.0-10.0); %Monocytes 7.9 % (0.0-10.0); %Neutrophils 79.2 % (42.0-75.0); Hematocrit 39.5 % (36.0-47.0); Hemoglobin 12.2 g/dL (12.0-16.0); Mean Corpuscular HGB CONC 30.9 g/dL (32.0-36.0); Mean Corpuscular Hemoglobin 26.8 pg (27.0-31.0); Mean Corpuscular Volume 86.8 fL (78.0-98.0); Mean Platelet Volume 11.4 fL (7.4-10.4); Platelet Count 181 10x3/uL (130-400); RBC Distribution Width 14.5 % (11.5-14.5); Red Blood Cell (RBC) Count 4.55 mill/uL (4.20-5.40)
[2023-12-15 04:42] LABS: Anion Gap 13 mmol/L (10-20); BUN (Urea Nitrogen) 25 mg/dL (9.8-20.1); Calc. Creatinine Clearance 37 mL/min (70-130); Calcium 8.9 mg/dL (7.8-10.44); Carbon Dioxide 28 mmol/L (23-31); Chloride 102 mmol/L (98-107); Estimated GFR 73; Glucose 105 mg/dL (83-110); Potassium 3.6 mmol/L (3.5-5.1); Sodium 139 mmol/L (136-145)
[2023-12-15] MEDS: Magnesium 2 GM/50 ML(in water) 2 GM in Premix 1 BAG IVPB SCH (08:43)
[2023-12-15] MEDS: Polyethylene Glycol 3350 17 GM Packet PO SCH (08:43)
[2023-12-15] MEDS: Pantoprazole DR 40 MG TAB PO SCH (08:44)
[2023-12-15] MEDS: HYDROmorphone 2 MG TAB PO PRN (08:57)
[2023-12-16 04:16] LABS: #Basophils 0.05 10x3/uL (0.0-0.2); %Basophils 0.3 % (0.0-1.0); %Eosinophils 1.4 % (0.0-10.0); %Lymphocytes 14.3 % (21.0-51.0); %Monocytes 9.5 % (0.0-10.0); %Neutrophils 73.2 % (42.0-75.0); Hematocrit 40.4 % (36.0-47.0); Hemoglobin 12.9 g/dL (12.0-16.0); Mean Corpuscular HGB CONC 31.9 g/dL (32.0-36.0); Mean Corpuscular Hemoglobin 27.9 pg (27.0-31.0); Mean Corpuscular Volume 87.3 fL (78.0-98.0); Mean Platelet Volume 11.6 fL (7.4-10.4); Platelet Count 194 10x3/uL (130-400); RBC Distribution Width 14.5 % (11.5-14.5); Red Blood Cell (RBC) Count 4.63 mill/uL (4.20-5.40)
[2023-12-16 04:39] LABS: Anion Gap 11 mmol/L (10-20); BUN (Urea Nitrogen) 29 mg/dL (9.8-20.1); Calc. Creatinine Clearance 38 mL/min (70-130); Calcium 8.8 mg/dL (7.8-10.44); Carbon Dioxide 27 mmol/L (23-31); Chloride 103 mmol/L (98-107); Estimated GFR 77; Glucose 107 mg/dL (83-110); Magnesium 1.9 mg/dL (1.6-2.6); Potassium 3.4 mmol/L (3.5-5.1); Sodium 138 mmol/L (136-145)
[2023-12-16] MEDS: Magnesium 2 GM/50 ML(in water) 2 GM in Premix 1 BAG IVPB SCH (09:28)
[2023-12-16] MEDS: Potassium Chloride 20 MEQ TAB PO SCH (09:28)
[2023-12-16 14:43] VITALS: BMI 16.4
[2023-12-16] MEDS ORDERED: HYDROcodone/Acetaminophen 10/325 mg Tablet PO PRN (17:40)
[2023-12-16] MEDS ORDERED: HYDROcodone/Acetaminophen 5/325 mg Tablet PO PRN (17:40)
[2023-12-16] MEDS: Acetaminophen 500 MG TAB PO PRN (20:47)
[2023-12-17 04:00] LABS: #Basophils 0.04 10x3/uL (0.0-0.2); %Basophils 0.3 % (0.0-1.0); %Eosinophils 2.6 % (0.0-10.0); %Lymphocytes 13.7 % (21.0-51.0); %Monocytes 10.2 % (0.0-10.0); %Neutrophils 71.7 % (42.0-75.0); Hematocrit 40.2 % (36.0-47.0); Mean Corpuscular HGB CONC 32.3 g/dL (32.0-36.0); Mean Corpuscular Hemoglobin 28.1 pg (27.0-31.0); Mean Corpuscular Volume 86.8 fL (78.0-98.0); Mean Platelet Volume 11.2 fL (7.4-10.4); Platelet Count 212 10x3/uL (130-400); RBC Distribution Width 14.6 % (11.5-14.5); Red Blood Cell (RBC) Count 4.63 mill/uL (4.20-5.40)
[2023-12-17 04:24] LABS: Anion Gap 12 mmol/L (10-20); BUN (Urea Nitrogen) 32 mg/dL (9.8-20.1); Calc. Creatinine Clearance 37 mL/min (70-130); Carbon Dioxide 26 mmol/L (23-31); Chloride 105 mmol/L (98-107); Estimated GFR 75; Glucose 115 mg/dL (83-110); Magnesium 2.2 mg/dL (1.6-2.6); Potassium 3.9 mmol/L (3.5-5.1); Sodium 139 mmol/L (136-145)
[2023-12-17 12:55] VITALS: BP 117/91
[2023-12-17 19:50] VITALS: TEMP 98.2
== END 2023-12-17 20:38 | disposition swing bed (61) | DRG 915 ==
LOC: CT 13:36 → CCU 15:17 → IMCU/EMU 12-14 22:09
PROVIDERS: ADMIT Internal Medicine; ATTEND Family Medicine
PROC: 5A12012 Performance of Cardiac Output, Single, Manual (ICD-10-PCS; principal; 2023-12-10)
PROC: 4A133R1 Monitoring of Arterial Saturation, Peripheral, Percutaneous Approach (ICD-10-PCS; 2023-12-10)
PROC: 3E033XZ Introduction of Vasopressor into Peripheral Vein, Percutaneous Approach (ICD-10-PCS; 2023-12-10)
PROC: 4A00X4Z Measurement of Central Nervous Electrical Activity, External Approach (ICD-10-PCS; 2023-12-12)
PROC: 5A09357 Assistance with Respiratory Ventilation, Less than 24 Consecutive Hours, Continuous Positive Airway Pressure (ICD-10-PCS; 2023-12-13)
DX: T88.6XXA Anaphylactic reaction due to adverse effect of correct drug or medicament properly administered, initial encounter (principal); I46.8 Cardiac arrest due to other underlying condition; J96.01 Acute respiratory failure with hypoxia; I63.9 Cerebral infarction, unspecified; N17.0 Acute kidney failure with tubular necrosis; J44.1 Chronic obstructive pulmonary disease with (acute) exacerbation; C68.0 Malignant neoplasm of urethra; I62.9 Nontraumatic intracranial hemorrhage, unspecified; E87.3 Alkalosis; R79.1 Abnormal coagulation profile; E05.80 Other thyrotoxicosis without thyrotoxic crisis or storm; I71.40 Abdominal aortic aneurysm, without rupture, unspecified; K59.00 Constipation, unspecified; H54.7 Unspecified visual loss; Z51.5 Encounter for palliative care; I65.01 Occlusion and stenosis of right vertebral artery; D72.829 Elevated white blood cell count, unspecified; M16.0 Bilateral primary osteoarthritis of hip; E55.9 Vitamin D deficiency, unspecified; C67.9 Malignant neoplasm of bladder, unspecified; F17.210 Nicotine dependence, cigarettes, uncomplicated; I10 Essential (primary) hypertension; E86.0 Dehydration; T49.0X5A Adverse effect of local antifungal, anti-infective and anti-inflammatory drugs, initial encounter; G83.21 Monoplegia of upper limb affecting right dominant side; I25.10 Atherosclerotic heart disease of native coronary artery without angina pectoris; N20.0 Calculus of kidney; Z95.1 Presence of aortocoronary bypass graft; Z90.49 Acquired absence of other specified parts of digestive tract; Z90.710 Acquired absence of both cervix and uterus; Z90.89 Acquired absence of other organs; Z98.890 Other specified postprocedural states; Z79.82 Long term (current) use of aspirin; Z79.899 Other long term (current) drug therapy; Z88.8 Allergy status to other drugs, medicaments and biological substances; Z88.5 Allergy status to narcotic agent; Z91.041 Radiographic dye allergy status
CPT/HCPCS: 36416; 36600; 70450; 70544; 70549; 70553; 71045; 71250; 71260; 74177; 76376; 80048; 80053; 80061; 81001; 82306; 82805; 83036; 83690; 83735; 83880; 84439; 84443; 84481; 84484; 85025; 87086; 93005; 93010; 93306; 93880; 94002; 94003; 94640; 95812; J0171; J0360; J1170; J1650; J2060; J2272; J2405; J2470; J2704; J2919; J3475; J3490; J7030; J7120; J7620; Q9967

== ENCOUNTER 2024-02-11 08:59 | Outpatient (CLI) | payer OTHER, MEDICAID | END 2024-02-11 09:00 | disposition home or self-care (01) | LOC: BICULT 08:59 | PROVIDERS: ATTEND Urology | DX: N20.0 Calculus of kidney (principal); M25.531 Pain in right wrist; C67.0 Malignant neoplasm of trigone of bladder | CPT/HCPCS: 74018; 76770 ==

== ENCOUNTER 2024-02-16 02:19 | Inpatient (IN) | payer OTHER, MEDICAID ==
[2024-02-16 03:01] VITALS: BMI 15.9
[2024-02-16] MEDS ORDERED: hydrALAZINE 25 MG TAB PO PRN (03:12)
[2024-02-16] MEDS ORDERED: Vancomycin Dose by Levels Sliding Scale (Wt <71) FS SCH (03:30)
[2024-02-16] MEDS: Sodium Chloride 0.9% 1,000 ML IV SCH (03:36)
[2024-02-16] MEDS: Calcium Carbonate 600 MG + Vit D TAB PO SCH (08:30)
[2024-02-16] MEDS: Enoxaparin 30 MG (0.3 mL) SYRINGE SC SCH (08:30)
[2024-02-16] MEDS: cefTRIAXone\\ROCEPHIN 1 GM in Sodium Chloride 0.9% 100 ML IVPB SCH (08:30)
[2024-02-16] MEDS ORDERED: Vancomycin 1 GM in Premix 1 BAG IVPB SCH (09:00)
[2024-02-16] MEDS ORDERED: Vancomycin HCl 500 MG in Sodium Chloride 0.9% 100 ML IVPB SCH (11:00)
[2024-02-16] MEDS: Acetaminophen 325 MG TAB PO PRN (19:57)
[2024-02-16 22:55] LABS: Vancomycin, Trough 6.8 ug/mL
[2024-02-17] MEDS: Vancomycin HCl 750 MG in Sodium Chloride 0.9% 250 ML 250 ML IVPB SCH (00:20)
[2024-02-17 04:16] LABS: #Basophils 0.04 10x3/uL (0.0-0.2); %Basophils 0.4 % (0.0-1.0); %Eosinophils 1.4 % (0.0-10.0); %Monocytes 17.3 % (0.0-10.0); %Neutrophils 65.2 % (42.0-75.0); Hematocrit 37.2 % (36.0-47.0); Hemoglobin 11.7 g/dL (12.0-16.0); Mean Corpuscular HGB CONC 31.5 g/dL (32.0-36.0); Mean Corpuscular Hemoglobin 27.7 pg (27.0-31.0); Mean Corpuscular Volume 88.2 fL (78.0-98.0); Mean Platelet Volume 12.3 fL (7.4-10.4); Platelet Count 153 10x3/uL (130-400); RBC Distribution Width 15.5 % (11.5-14.5); Red Blood Cell (RBC) Count 4.22 mill/uL (4.20-5.40)
[2024-02-17 04:37] LABS: Anion Gap 12 mmol/L (10-20); BUN (Urea Nitrogen) 12 mg/dL (9.8-20.1); Calc. Creatinine Clearance 43 mL/min (70-130); Calcium 9.1 mg/dL (7.8-10.44); Carbon Dioxide 22 mmol/L (23-31); Chloride 108 mmol/L (98-107); Estimated GFR 88; Glucose 109 mg/dL (83-110); Potassium 3.2 mmol/L (3.5-5.1); Sodium 139 mmol/L (136-145)
[2024-02-17] MEDS ORDERED: Ondansetron PF 4 MG/2 ML Vial IVP PRN (08:21)
[2024-02-17] MEDS: Potassium Chloride 20 MEQ TAB PO SCH (09:04)
[2024-02-17] MEDS ORDERED: Ipratropium/Albuterol 3 ML NEB NEB PRN (11:16)
[2024-02-17] MEDS: Losartan 25 MG TAB PO SCH (12:26)
[2024-02-17] MEDS: Pantoprazole DR 40 MG TAB PO SCH (12:26)
[2024-02-17] MEDS: Vancomycin HCl 500 MG in Sodium Chloride 0.9% 100 ML IVPB SCH (12:29)
[2024-02-17] MEDS: Mometasone 200 MCG/Formoterol 5 MCG 120 PUFF INHALER INH SCH (18:21)
[2024-02-18 05:28] LABS: Hematocrit 37.7 % (36.0-47.0); Hemoglobin 12.2 g/dL (12.0-16.0); Mean Corpuscular HGB CONC 32.4 g/dL (32.0-36.0); Mean Corpuscular Volume 86.7 fL (78.0-98.0); Platelet Count 182 10x3/uL (130-400); RBC Distribution Width 15.3 % (11.5-14.5); Red Blood Cell (RBC) Count 4.35 mill/uL (4.20-5.40)
[2024-02-18 05:42] LABS: Vancomycin, Random 15.3 ug/mL (See Comment)
[2024-02-18 05:48] LABS: Anion Gap 12 mmol/L (10-20); BUN (Urea Nitrogen) 14 mg/dL (9.8-20.1); Calc. Creatinine Clearance 44 mL/min (70-130); Calcium 9.2 mg/dL (7.8-10.44); Carbon Dioxide 22 mmol/L (23-31); Chloride 106 mmol/L (98-107); Estimated GFR 88; Glucose 104 mg/dL (83-110); Potassium 3.6 mmol/L (3.5-5.1); Sodium 136 mmol/L (136-145)
[2024-02-18] MEDS: Polyethylene Glycol 3350 17 GM Packet PO SCH (09:18)
[2024-02-18] MEDS: Pantoprazole DR 40 MG TAB PO SCH (09:18)
[2024-02-18] MEDS: Losartan 25 MG TAB PO SCH (09:25)
[2024-02-18 09:46] VITALS: TEMP 97.5
[2024-02-18 12:09] VITALS: BP 157/80
== END 2024-02-18 15:01 | disposition home health service (06) | DRG 872 ==
LOC: 2NO 02:19
PROVIDERS: ADMIT Internal Medicine; ATTEND Internal Medicine
DX: A41.59 Other Gram-negative sepsis (principal); N39.0 Urinary tract infection, site not specified; Z68.1 Body mass index [BMI] 19.9 or less, adult; E44.0 Moderate protein-calorie malnutrition; J44.9 Chronic obstructive pulmonary disease, unspecified; I10 Essential (primary) hypertension; I25.10 Atherosclerotic heart disease of native coronary artery without angina pectoris; E78.5 Hyperlipidemia, unspecified; H54.7 Unspecified visual loss; N20.0 Calculus of kidney; I69.398 Other sequelae of cerebral infarction; E03.8 Other specified hypothyroidism; Z86.74 Personal history of sudden cardiac arrest; Z88.1 Allergy status to other antibiotic agents; Z88.8 Allergy status to other drugs, medicaments and biological substances; Z88.5 Allergy status to narcotic agent; Z91.041 Radiographic dye allergy status; Z90.49 Acquired absence of other specified parts of digestive tract; Z90.710 Acquired absence of both cervix and uterus; Z85.51 Personal history of malignant neoplasm of bladder; Z87.891 Personal history of nicotine dependence; Z86.73 Personal history of transient ischemic attack (TIA), and cerebral infarction without residual deficits; I71.40 Abdominal aortic aneurysm, without rupture, unspecified; E87.6 Hypokalemia
CPT/HCPCS: 36415; 80048; 80202; 85025; 85027; J0696; J1650; J3370; J7030; J7050